=== PATIENT | female | born 1955 | race African-American/Black ===

== ENCOUNTER 2016-08-30 22:04 | Inpatient (IN) | payer OTHER, BC ==
--- NOTE | ~2016-08-30 | US98 ---
[facility] A Service of [facility] & [facility] RADIOLOGY TEXT RESULTS PATIENT: KOFI REYES LOCATION: [facility] 564-01 : 54 UNIT #: [id number] AGE: [address]: Janae Driver MD SEX: F ORDER DR: [id number] [facility] [address] [facility]. [place], [place] [address] [id number] I MR#: [id number] Acc #: [id number] NAME: KOFI REYES : 1955 SEX: F STUDY DATE/TIME: 09/02/2016 22:45 UNIT: [facility] ROOM: [facility] STUDY DESCRIPTION: US Pelvic Non-OB Complete Attending Physician: Janae Driver M.D. Ordering Physician: Janae Driver M.D. Primary Care Physician: Elisha Walden M.D. MEDICAL IMAGING REPORT This report is preliminary unless electronic signature is present EXAM Pelvic ultrasound, transabdominal technique only, 09/02/2016 INDICATION 60-year-old female with postmenopausal bleeding for 3 days. No prior surgeries. TECHNIQUE Sonographic imaging of the pelvis was performed transabdominally only. Transvaginal images could not be performed secondary to patient functional status. These were the best images possible. FINDINGS TRANSABDOMINAL IMAGING: These were the best images possible given the patient's functional status. Uterus measures about 7.3 cm x 2.7 cm x 3.4 cm. The endometrial stripe is difficult to visualize and assess. However, it appears thickened greater than a centimeter and perhaps measuring up to as much as 1.3 cm. There are mixed areas of increased and decreased echogenicity associated with the endometrial stripe and there may be a small amount of fluid within the endometrial cavity as well. Given the patient's age and the provided history, imaging features are concerning for at least endometrial hyperplasia and perhaps endometrial malignancy. When the patient can better cooperate, transvaginal imaging would be complimentary for further assessment but SUPPLY TECHNICIAN referral and tissue sampling will likely ultimately be necessary for further characterization and assessment regardless. Neither ovary could be identified. No adnexal mass, free fluid or drainable fluid collection. IMPRESSION 1. Abnormal examination. Although the study is limited due to the [facility]. [facility] A Service of [facility] RADIOLOGY TEXT RESULTS PATIENT: KOFI REYES LOCATION: [facility] 564-01 : 54 UNIT #: [id number] AGE: [address]: Janae Driver MD SEX: F ORDER DR: patient's functional status and a limited sonographic window the endometrial stripe appears to be abnormally thickened and there may be a small amount of fluid present in the endometrial cavity as well. It measures up to at least 1.1cm and perhaps up to 1.3 cm. SUPPLY TECHNICIAN referral recommended. Tissue sampling will likely be necessary for further assessment regardless of whether or not the patient can ultimately tolerate transvaginal imaging. 2. There is no free fluid or drainable fluid collection. Neither ovary was identified. Dictated by... Sudhakar Cabrera M.D. THIS IS AN ELECTRONICALLY VERIFIED REPORT Sudhakar Cabrera M.D. at 09/03/2016 5:14 PM MC/bridgett TD: 09/03/2016 02:57 JOB #: [id number] MEDICAL IMAGING REPORT Page 1 of 1 COPY
--- NOTE | ~2016-08-30 | MR17 ---
[facility] A Service of [facility] & [facility] RADIOLOGY TEXT RESULTS PATIENT: KOFI REYES LOCATION: [facility] 564-01 : 54 UNIT #: [id number] AGE: [address]: Janae Driver MD SEX: F ORDER DR: [id number] [facility] [address] [place], [place] [address] [id number] MR#: [id number] Acc #: [id number] NAME: KOFI REYES : 1955 SEX: F STUDY DATE/TIME: 08/31/2016 10:53 UNIT: [facility] ROOM: 4 STUDY DESCRIPTION: MR Brain WWo Contrast Attending Physician: Janae Driver M.D. Ordering Physician: Daniel Garcia M.D. Primary Care Physician: Elisha Walden M.D. MRI CENTER REPORT This report is preliminary unless electronic signature is present. REVISED REPORT SEE ADDENDUM EXAM MRI of the brain with and without contrast, 08/31/[address] head without contrast dated 08/30/2016. HISTORY Possible seizures. Patient was found on the floor with eyes rolled back in the head and foaming in the mouth, unresponsive. FINDINGS Multisequence multiplanar imaging of the brain was obtained with and without contrast. GFR measured greater than 60. 20 mL of MultiHance was administered intravenously. No acute stroke, hydrocephalus, hemorrhage or midline shift. There is increased T2 signal noted within the bilateral hippocampal formations, much worse on the left when compared to the right and it extends to involve most of the left uncus. There is enhancement of the left uncus and adjacent temporal lobe which appears to be faint and following the contour of the brain in this region. A few other scattered hyperintense small T2-signal lesions are noted in the subcortical white matter, periventricular white matter and edmundo. Thick slices through the sella with the pituitary gland, pineal region and upper cervical spine are unremarkable. There is an increased T2 FLAIR signal lesion measuring 1.2 cm x 1.3 cm in the superficial right parotid gland (series 10, image 1 and series 12, image 1). Lesion has mixed signal in the T2 and T1 FSE sequences with only mild peripheral enhancement if any. It is incompletely characterized on the current study. Paranasal sinuses, orbits with the ocular structures and mastoids do not demonstrate any significant abnormality. Mild S-shaped nasal septal deviation is seen. [facility] A Service of [facility] RADIOLOGY TEXT RESULTS PATIENT: KOFI REYES LOCATION: [facility] 564-01 : 54 UNIT #: [id number] AGE: [address]: Janae Driver MD SEX: F ORDER DR: IMPRESSION 1. There is a mildly enhancing increased T2 FLAIR signal lesion noted within the medial left temporal lobe predominately involving the uncus. It could be related to the occurrence of seizure or it could be related to a lesion like herpes encephalitis which induced seizure. Tumor and limbic encephalitis are next in the differential consideration. Correlate clinically and consider followup studies. No associated hemorrhage or significant herniation is seen. Mild swelling of the left uncus is visualized. 2. No acute stroke, hydrocephalus or midline shift. 3. Scattered hyperintense T2 nonenhancing nonspecific lesions are noted in the brain likely related to chronic microvascular ischemic change or migraine based on age and statistics. 4. A 1.2 cm x 1.3 cm nodule is seen in the superficial right parotid gland which is incompletely characterized on the current study. It is not fully included and visualized portions demonstrate mild peripheral enhancement. It could represent a tumor and it has to be further imaged with CT neck with contrast. 5. Attempts are made to contact Dr. Daniel Garcia at 2:15 p.m. on 08/31/2016. Dictated by... Jm Markham M.D. EDDIE/bridgett TD: 09/01/2016 00:37 JOB #: [id number] ADDENDUM EXAM MRI brain with and without contrast dated 08/31/16 FINDINGS The findings were discussed with Sandra at 2:40 p.m. on 08/31/16. 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 Differential considerations include tumor and limbic encephalitis, given the history of known primary. STAT * RESULT [facility]. [facility] A Service of [facility] RADIOLOGY TEXT RESULTS PATIENT: KOFI REYES LOCATION: [facility] 564-01 : 54 UNIT #: [id number] AGE: [address]: Janae Driver MD SEX: F ORDER DR: Dictated by... Jm Markham M.D. THIS IS AN ELECTRONICALLY VERIFIED REPORT Jm Markham M.D. at 09/05/2016 5:17 PM CPR/ea TD: 08/31/2016 15:17 JOB #: [id number] CC: Susan/melody Please Delete MRI CENTER REPORT Page 1 of 1 COPY
--- NOTE | ~2016-08-30 | BMI ---
[facility] Nutrition Therapy DATE: 09/01/16 Patient: KOFI REYES Physician: JAN Address: [address] [place] [address] DRIVE Room/Bed: [address] [place] [address], Zip: [place] [address] Admit Date: 08/31/16 Date of : 53 Height: 5 4 Weight: 236 107.5 HIGH BMI NOTE: DX: 60 Y.O. FEMALE ADMITTED FOR SEIZURE ANTHROPOMETRICS: 5'4", WT: 236# (107 KG), BMI: 40.5 DIET: NPO INTERVENTION: 1. NPO RECOMMENDATIONS: 1. ONCE MEDICALLY FEASIBLE, ADVANCE DIET INDICATED TO CC+HH TO PROMOTE GRADUAL WEIGHT LOSS TOWARDS HEALTHY BMI (19.0-25.0) OR +/-10%IBW RD WILL F/U PER PROTOCOL Respectfully, ROB GIL MS, RD, LD Food and Nutritional Services [facility] cc: client file
--- NOTE | ~2016-08-30 | CR72 ---
[facility] A Service of [facility] RADIOLOGY TEXT RESULTS PATIENT: KOFI REYES LOCATION: [facility] : 54 UNIT #: [id number] AGE: [address]: Daniel Garcia MD SEX: F ORDER DR: [id number] [facility] [address] [facility] [facility]. [place], [place] [address] [id number] I MR#: [id number] Acc #: [id number] NAME: KOFI REYES : 1955 SEX: F STUDY DATE/TIME: 08/30/2016 21:51 UNIT: [facility] ROOM: 10066 STUDY DESCRIPTION: CR Chest Single View Portable Attending Physician: Daniel Garcia M.D. Ordering Physician: Vaibhav Swanson M.D. Primary Care Physician: Elisha Walden M.D. MEDICAL IMAGING REPORT This report is preliminary unless electronic signature is present EXAM Portable chest 08/30 HISTORY Found on floor by brother erasmo with suspected apparent seizure and weakness and shortness of air COMPARISON None FINDINGS Portable view of the chest was obtained. There are low lung volumes with mild perihilar and bibasilar atelectasis. The heart size is upper limits of normal. IMPRESSION Very poor inspiration with perhaps mild bibasilar and perihilar atelectasis. Otherwise, no active disease. Dictated by... Chris Tinoco M.D. THIS IS AN ELECTRONICALLY VERIFIED REPORT Chris Tinoco M.D. at 08/31/2016 9:55 PM FEL/to TD: 08/31/2016 16:17 JOB #: [id number] MEDICAL IMAGING REPORT [facility] A Service of [facility] RADIOLOGY TEXT RESULTS PATIENT: KOFI REYES LOCATION: [facility] : 54 UNIT #: [id number] AGE: [address]: Daniel Garcia MD SEX: F ORDER DR: Page 1 of 1 COPY
--- NOTE | ~2016-08-30 | DS ---
Unit #: [id number] #: [id number] Patient: KOFI REYES [id number] [address] [id number] I MR#: [id number] NAME: KOFI REYES ROOM: [facility] Age: 60 Sex: F Admission Date: 08/31/2016 : 1955 Discharge Date: 09/03/2016 Attending Physician: Janae Driver M.D. Primary Care Physician: Elisha Walden M.D. DISCHARGE SUMMARY PRINCIPAL DIAGNOSES 1. New onset seizure. 2. Postmenopausal bleeding with thickened endometrial stripe noted on pelvic ultrasound. 3. Iron deficiency anemia. 4. Hypothyroidism. 5. Paroxysmal atrial fibrillation, currently in normal sinus rhythm. 6. Hypertension. 7. Depression with noted flat affect. 8. Mild bradycardia, off of beta-blockers. 9. Obesity, morbid. 10. Hypothyroidism. 11. Hyperlipidemia CONSULTANTS Dr. Jean Baptiste, Neurology. PROCEDURES IMAGIN. Chest x-ray, August 30, 2016, with perihilar atelectasis. 2. CT of the head without contrast, August 30, 2016, with increased density in the inferior portion of the left cerebral hemisphere. 3. CT of the cervical spine without contrast on August 30, 2016, with degenerative changes. No acute injury. No fracture. 4. MRI of the brain with and without contrast, August 31, 2016, revealing increased signal uptake in the left limbic region. 5. Lumbar puncture, studies of which were ultimately negative for infection or malignancy. 6. Transvaginal ultrasound on September 02, 2016, with thickened endometrial stripe measuring 1.1 to 1.3 cm. No free fluid noted. No ovaries were not imaged. CLINICAL HISTORY AND HOSPITAL COURSE Mrs. Reyes is a 60-year-old -[place] female who presents to the emergency department after a witnessed seizure at home. Please refer to the H and P for further details. CT scan of the head without contrast, did reveal some questionable change in the left cerebral hemisphere. The patient was subsequently admitted. The patient started empiric Vimpat per the direction of Dr. Jean Bapitste. Due to abnormal CT, she underwent MRI of the brain, revealing some increased signal uptake in the left limbic region. Appearance is most consistent with perhaps some sort of encephalitis. For this reason, the patient underwent lumbar puncture but infectious workup was completely negative. Unit #: [id number] #: [id number] Patient: KOFI REYES The patient had no further seizures on medication. It is felt that most likely this MRI abnormality was a seizure focus. It may be related to seizure, in of itself. The patient will be maintained on Vimpat. She will need a follow-up MRI in 3-4 weeks. The patient has a history of postmenopausal bleeding, and upon review of records from the [place], there are plans to have transvaginal ultrasound. This was completed during hospitalization, and did indeed reveal endometrial stripe which will require endometrial biopsy. We will send these results back to her primary care provider at the [place], and again can see OB-POLITICAL REPORTER at the [place] for evaluation. Patient demonstrated difficulty with short-term memory during hospitalization. Her family denies that she has any of this at home, and I cannot find any other medical cause for it given seizure many days ago. Thyroid function and vitamin B12 levels were acceptable. Her affect is also quite flat, and I am concerned that perhaps her memory loss is something secondary to perhaps some depression, though she denies depression, her family states she is not depressed at home. Patient also may have some underlying memory loss. I think that this can be worked up again as an outpatient. Patient's other chronic condition remains stable. I will note that she has been bradycardiac even off of her metoprolol during hospitalization. I am going to hold it as an outpatient, and it can be reevaluated as an outpatient. DISCHARGE CONDITION Stable. DISCHARGE STATUS Discharged to home. DISCHARGE MEDICATIONS 1. Flovent Diskus 2 sprays per nostril daily. 2. Xarelto 20 mg daily. 3. Neurontin 100 mgs b.i.d. 4. Vimpat 100 mg p.o. b.i.d. with 1 refill. 5. Losartan 50 mg daily. 6. Ferrous sulfate 325 mg t.i.d. 7. Levothyroxine 175 mcg p.o. daily. DISCHARGE INSTRUCTIONS Patient was instructed to follow a heart-healthy diet. She can increase her activity as tolerated. FOLLOWUP The patient will follow up with her primary care provider, Dr. Walden in approximately 1-2 weeks, needs again to be seen by OB-POLITICAL REPORTER through the [place] for endometrial biopsy. She also needs repeat MRI of the brain in 3-4 weeks to further evaluate this abnormality in the left limbic system to determine whether if perhaps it progresses and/or resolves. [facility]. TIME SPENT ON DISCHARGE: 34 minutes. Unit #: [id number] #: [id number] Patient: KOFI REYES Dictated by... Pavel Cobb/edmond TD: 09/03/2016 20:56 JOB #: [id number] DISCHARGE SUMMARY Page 1 of 1 X Janae Driver MD X DISCHARGE SUMMARY
--- NOTE | ~2016-08-30 | CT71 ---
[facility] A Service of [facility] & [facility] RADIOLOGY TEXT RESULTS PATIENT: KOFI REYES LOCATION: [facility] [address]127-86 : 54 UNIT #: [id number] AGE: [address]: Daniel Garcia MD SEX: F ORDER DR: [id number] [facility] [address] [facility]. [place], [place] [address] [id number] I MR#: [id number] Acc #: [id number] NAME: KOFI REYES : 1955 SEX: F STUDY DATE/TIME: 08/30/2016 23:03 UNIT: [facility] ROOM: 29581 STUDY DESCRIPTION: CT Head Wo Contrast Attending Physician: Daniel Garcia M.D. Ordering Physician: Vaibhav Swanson M.D. Primary Care Physician: Elisha Walden M.D. MEDICAL IMAGING REPORT This report is preliminary unless electronic signature is present EXAM CT scan of the head without contrast INDICATIONS Suspected seizure; patient was found on floor with eyes rolled back in head and foaming at the mouth. Patient is unresponsive. This happened this evening. FINDINGS This CT exam was performed with one or more of the following radiation dose reduction techniques: Automatic exposure control, adjustment of mA and/or kV according to patient size, and iterative reconstruction. Unenhanced images were obtained through the brain. There is a slightly hyperdense area noted in the medial temporal lobe. This is about 17 mm x 14 mm. Ventricles and subarachnoid spaces are normal. There is no extraaxial fluid collection. The bones are normal. IMPRESSION 1. There is a subtle area of increased density measuring about 17 mm in diameter in the inferior portion of the left cerebral hemisphere. I believe it is in the inferior medial left temporal lobe, but its location is difficult to clearly determine on this unenhanced CT scan alone. This certainly could represent a tumor. It does not appear to represent hemorrhage and there are no acute findings present. Followup with an MRI of the brain with and without contrast is recommended, perhaps either as an outpatient or as an inpatient in the morning. Dictated by... Chris Tinoco M.D. THIS IS AN ELECTRONICALLY VERIFIED REPORT [facility] A Service of [facility] & [facility] RADIOLOGY TEXT RESULTS PATIENT: KOFI REYES LOCATION: [facility] [address]145-20 : 54 UNIT #: [id number] AGE: [address]: Daniel Garcia MD SEX: F ORDER DR: Chris Tinoco M.D. at 08/31/2016 9:55 PM FEL/psc TD: 08/31/2016 17:46 JOB #: [id number] MEDICAL IMAGING REPORT Page 1 of 1 COPY
--- NOTE | ~2016-08-30 | MR17 ---
[facility] A Service of [facility] & [facility] RADIOLOGY TEXT RESULTS PATIENT: KOFI REYES LOCATION: [facility] [address]-77 : 54 UNIT #: [id number] AGE: [address]: Daniel Garcia MD SEX: F ORDER DR: [id number] [facility] [address] [place], [place] [address] [id number] I MR#: [id number] Acc #: NAME: KOFI REYES : 1955 SEX: F STUDY DATE/TIME: 08/31/2016 10:53 UNIT: [facility] ROOM: 08226 STUDY DESCRIPTION: MR Brain WWo Contrast Attending Physician: Daniel Garcia M.D. Ordering Physician: Daniel Garcia M.D. Primary Care Physician: Elisha Walden M.D. MRI CENTER REPORT This report is preliminary unless electronic signature is present. ADDENDUM EXAM MRI brain with and without contrast dated 08/31/16 FINDINGS The findings were discussed with Sandra at 2:40 p.m. on 08/31/16. Differential considerations include tumor and lymphocytic encephalitis. STAT * RESULT Dictated by... Jm Markham M.D. CPR/siobhan TD: 08/31/2016 15:17 JOB #: [id number] MRI CENTER REPORT Page 1 of 1
--- NOTE | ~2016-08-30 | DS ---
Unit #: [id number] #: [id number] Patient: KOFI REYES [id number] [address] [address] [id number] I MR#: [id number] NAME: KOFI REYES ROOM: 4 Age: 60 Sex: F Admission Date: 08/31/2016 : 1955 Discharge Date: 09/03/2016 Attending Physician: Janae Driver M.D. Primary Care Physician: Elisha Walden M.D. DISCHARGE SUMMARY ADDENDUM The cost of Vimpat was checked and unfortunately it was very expensive. She has been changed from Vimpat to Keppra 500 mg p.o. b.i.d. and a 2-month prescription given. Dictated by... Janae Driver M.D. KEH/gz TD: 09/04/2016 08:12 JOB #: [id number] DISCHARGE SUMMARY Page 1 of 1 X Janae Driver MD DISCHARGE SUMMARY
--- NOTE | ~2016-08-30 | EKG ---
PATIENT: KOFI REYES UNIT #: [id number] Ventricular Rate: 62 BPM Atrial Rate: 62 BPM P-R Interval: 160 ms QRS Duration: 84 ms Q-T Interval: 396 ms QTC Calculation(Bezet): 401 ms P [place]: 11 degrees Calculated R [place]: 14 degrees Calculated T [place]: 23 degrees Diagnosis Line: Normal sinus rhythm Diagnosis Line: Nonspecific T wave abnormality Diagnosis Line: Borderline ECG Diagnosis Line: When compared with ECG of 30-AUG-2016 21:54, Diagnosis Line: Vent. rate has decreased BY 32 BPM Diagnosis Line: QT has shortened Diagnosis Line: Confirmed by MIREILLE VERA MD ([id number]) on 09/02/2016 Diagnosis Line: 5:32:51 AM INTERPRETING MD: JODY WOODWARD
--- NOTE | ~2016-08-30 | EKG ---
PATIENT: KOFI REYES UNIT #: [id number] Ventricular Rate: 94 BPM Atrial Rate: 94 BPM P-R Interval: 158 ms QRS Duration: 82 ms Q-T Interval: 364 ms QTC Calculation(Bezet): 455 ms P [place]: 43 degrees Calculated R [place]: 14 degrees Calculated T [place]: 49 degrees Diagnosis Line: Normal sinus rhythm Diagnosis Line: Possible Left atrial enlargement Diagnosis Line: Borderline ECG Diagnosis Line: Diagnosis Line: Confirmed by GERARD PEREZ MD ([id number]) on Diagnosis Line: 08/31/2016 3:52:26 PM INTERPRETING MD: LOUISE
--- NOTE | ~2016-08-30 | HP ---
Unit #: [id number] #: [id number] Patient: KOFI REYES [id number] [address] [place], [place] [address] [id number] I MR#: [id number] NAME: KOFI REYES ROOM: 48412 Age: 60 Sex: F Admission Date: 08/31/2016 : 1955 Attending Physician: Daniel Garcia M.D. Primary Care Physician: Elisha Walden M.D. HISTORY AND PHYSICAL SOURCE OF INFORMATION The patient is a poor historian. History is from collateral sources, the ER information and sisters Georgina and Emy. CHIEF COMPLAINT Seizures. HISTORY OF PRESENT ILLNESS This is a 60-year-old female with a history of atrial fibrillation, anticoagulation with Xarelto, hypertension, morbid obesity, who was recently diagnosed with a spot on her ovaries and was scheduled for a biopsy in 48 hours on 09/02/2016, presents with seizure. She has never had a seizure in the past. The patient was found by family and brought to the ER for evaluation. Here in the ER, she was started on Keppra and Ativan. She is not exactly postictal at this time, however, the exact description of what they found on the seizure episode really is per report. The patient was evaluated by neurology, Dr. Jean Baptiste, and the CAT scan shows radiological density around the parietal region which is concerning, especially given the fact that she is on Xarelto. She is currently being evaluated by Neurology. PAST MEDICAL HISTORY As stated above significant for: 1. Hypertension. 2. Hypothyroidism. 3. Hyperlipidemia. 4. Depression. 5. Recent diagnosis of ovarian mass. 6. Atrial fibrillation. 7. Morbid obesity. PAST SURGICAL HISTORY Includes low back surgery in 2001. CURRENT MEDICATIONS Include: 1. Ferrous sulfate 325 mg p.o. t.i.d. 2. Fluticasone propionate 50 mcg two sprays each nostril daily. 3. Gabapentin 100 mg p.o. b.i.d. 4. Levothyroxine 175 mcg one tablet by mouth daily. 5. Losartan 50 mg one tablet p.o. daily. 6. Metoprolol tartrate 50 mg one tablet p.o. b.i.d. 7. Xarelto 20 mg daily. Unit #: [id number] #: [id number] Patient: KOFI REYES ALLERGIES 1. Lisinopril. 2. Codeine. SOCIAL HISTORY From previous documentation from [facility], lifelong nonsmoker. FAMILY HISTORY Not pertinent. REVIEW OF SYSTEMS Limited at this time. She denies any headache, nausea or vomiting. The patient is a poor historian at this point and she is minimally verbal though she responds to direct questioning. PHYSICAL EXAMINATION VITAL SIGNS: Blood pressure 129/60, pulse 91, respiratory rate 17, temperature 98.0, O2 saturation 97% on 2 liters oxygen. GENERAL: She was comfortable, not in distress. HEENT: Pupils seemed to be equal and react to light and accommodation. She had evidence of bleeding from her tongue. LUNGS: Reduced breath sounds along the bases posteriorly. HEART: First and second heart sounds only. ABDOMEN: Soft, nondistended, nontender. EXTREMITIES: No edema with some bruising on her left owusu. NEUROLOGIC: Not able to fully assess secondary to patient's drowsiness. LYMPHATICS: No enlarged peripheral lymphadenopathy that I could appreciate. PSYCHIATRIC: Not able to fully assess. DIAGNOSTIC STUDIES LABORATORY: Chemistries with glucose 118, BUN 14, creatinine 1.1, sodium 140, potassium 4.2, chloride 107, calcium 9.1. TSH 0.04. CBC with WBC 9.7, hemoglobin 12.3, hematocrit 39.4, platelet count 228, neutrophil count 91.4. She had urinalysis which showed protein 1+, urobilinogen 0.2, otherwise essentially normal. Urine toxicology screen was essentially negative. CARDIOVASCULAR: EKG was normal sinus rhythm. ASSESSMENT AND PLAN 1. Seizures, new onset. Neurology has been consulted at this time. Workup is in progress. 2. Atrial fibrillation. Patient was on Xarelto 20 mg p.o. daily for anticoagulation. 3. Hypertension. 4. Morbid obesity. 5. Chronic back pain. 6. Hypothyroidism. 7. Vaginal bleeding with ovarian mass. 8. GI prophylaxis put her Protonix 40 mg p.o. daily. 9. Seizures. Management will be per Neurology; however, she was on Keppra and Dr. Jean Baptiste has added Vimpat. CODE STATUS She is a FULL CODE. Unit #: [id number] #: [id number] Patient: KOFI REYES Dictated by Pavel Yang TD: 08/31/2016 15:01 JOB #: [id number] HISTORY AND PHYSICAL Page 1 of 1 X Mo Charles MD X HISTORY AND PHYSICAL
--- NOTE | ~2016-08-30 | CT52 ---
[facility] A Service of [facility] RADIOLOGY TEXT RESULTS PATIENT: KOFI REYES LOCATION: CEDOF : 54 UNIT #: [id number] AGE: [address]: Daniel Garcia MD SEX: F ORDER DR: [id number] [facility] [address]. [place], [place] [address] [id number] I MR#: [id number] Acc #: [id number] NAME: KOFI REYES : 1955 SEX: F STUDY DATE/TIME: 08/30/2016 23:19 UNIT: CEDOF ROOM: 22821 STUDY DESCRIPTION: CT Cervical Spine Wo Cont Attending Physician: Daniel Garcia M.D. Ordering Physician: Vaibhav Swanson M.D. Primary Care Physician: Elisha Walden M.D. MEDICAL IMAGING REPORT This report is preliminary unless electronic signature is present EXAM Cervical spine CT scan without contrast HISTORY Suspected seizure. Patient found on floor and is unresponsive and may have neck injury. TECHNIQUE Axial 2 mm images were obtained through the cervical spine and sagittal and coronal reconstructions were generated. This CT exam was performed with one or more of the following radiation dose reduction techniques: automatic exposure control, adjustment of mA and/or kV according to patient size, and iterative reconstruction. FINDINGS There are prominent anterior osteophytes formations from C3-4 through C7-T1 with partial fusion of C2-3. There is no fracture or subluxation. IMPRESSION Degenerative changes. No evidence of acute injury. Dictated by... Chris Tinoco M.D. THIS IS AN ELECTRONICALLY VERIFIED REPORT Chris Tinoco M.D. at 08/31/2016 9:55 PM FEL/to TD: 08/31/2016 17:46 JOB #: [id number] [facility] A Service of [facility] RADIOLOGY TEXT RESULTS PATIENT: KOFI REYES LOCATION: CEDOF : 54 UNIT #: [id number] AGE: [address]: Daniel Garcia MD SEX: F ORDER DR: MEDICAL IMAGING REPORT Page 1 of 1 COPY
--- NOTE | ~2016-08-30 | CO ---
Unit #: [id number] #: [id number] Patient: KOFI REYES [id number] [facility] [address]. [place], [place] [address] [id number] I MR#: [id number] NAME: KOFI REYES ROOM: 564 Age: 60 Sex: F Admission Date: 08/31/2016 : 1955 Attending Physician: Daniel Garcia M.D. Primary Care Physician: Elisha Walden M.D. Consultation Date: 08/31/2016 CONSULTATION REPORT PRIMARY CARE PHYSICIAN [facility]. REASON FOR CONSULTATION Multiple seizure. PATIENT IDENTIFICATION This is a 60-year-old apparently right-handed female, who is evaluated in room 10 in the ER at [facility]. SOCIAL INFORMATION The medical records and my discussion with the patient's sisters. PROBLEM LIST 1. Hypertension. 2. Thyroid disease. 3. Diabetes. 4. Anxiety and possible depression. 5. Some sort of ovarian tumor which is being investigated. 6. Low back surgery. 7. GERD. 8. Posttraumatic stress disorder. 9. Undifferentiated somatoform disorder. 10. Obesity. 11. Paroxysmal atrial fibrillation. 12. Arthritis. HISTORY OF PRESENT ILLNESS This is a 60-year-old female, who actually lives I believe with her sister and she has been sick lately because of multiple issues and lately some problems for which the differential diagnosis, some sort of ovarian tumor, and she was at home and this was regular day for her till her brother found her which could be described as active seizure type event, so she was brought in via EMS yesterday around 11:14 p.m. She had another seizure while she was here, she was given Ativan and loaded with Keppra and she is now lethargic. She had CT of the head done, which showed an area of more hyperdensity in the basal ganglia/a bit rostral. No seizures. No falls or injuries otherwise known to me. No drugs. No change in medication. No headaches or other issues. She is a bit drowsy as I had mentioned. Unit #: [id number] #: [id number] Patient: KOFI REYES Nothing suggesting DIRECTOR TALENT infection. Vital signs were stable. She is afebrile. Her MRI is pending. She is already on Xarelto I believe. PAST MEDICAL HISTORY As discussed above. PAST SURGICAL HISTORY As discussed above. ALLERGIES None. HOME MEDICATIONS Ferrous sulfate, Flovent, Neurontin, Synthroid, Losartan, metoprolol, Xarelto. FAMILY HISTORY No seizures. SOCIAL HISTORY It looks like she lives with her brother. There is no tobacco, alcohol, or drug use. REVIEW OF SYSTEMS Could not be obtained. She is quite lethargic right now. PHYSICAL EXAMINATION VITAL SIGNS: Temperature is 98 degrees Fahrenheit, pulse 68, respirations 19, blood pressure 133/63. Weight of 250 pounds. NEUROLOGIC: The patient is lethargic, but she answers my commands. She can name. She can repeat. She thinks this is June. She know she is in the hospital. No right/left confusion. Finger agnosia is very questionable. Cranial examination, she does respond to threats in the primary naqvi. Eye movements are conjugate. I did not see any ptosis. I did not see any nystagmus. Extraocular movements seemed to be intact. Pupils are reactive, size about 3 mm. No ptosis. No nystagmus. Sensation on the face and scalp are normal. Strength of muscles of facial expression normal. Hearing seemed to be intact. Tongue was midline. I could not visualize the oropharynx or uvula. Head turning was spontaneous. Motor examination, she is moving all extremities. Strength of at least 4+ or /5. Sensory examination intact for soft touch and pain. Extinction is questionable. Romberg was not evaluated. Gait examination was deferred. I could not get any reflexes. Toes are equivocal. DIAGNOSTIC STUDIES LABORATORY RESULTS: Reviewed. IMAGING STUDIES: Reviewed. Unit #: [id number] #: [id number] Patient: KOFI REYES IMPRESSION Multiple seizures, very nonspecific. Further workup has been requested. PLAN I will put her on Vimpat instead of Keppra because of her history of depression and follow up on the MRI, get an EEG and we will go from there. Seizure precautions and state laws apply. If there is any other questions, issues, or concerns, please let me know and I will follow her. Dictated by... Nava Jean Baptiste M.D. OBEY/sterling TD: 09/01/2016 03:08 JOB #: [id number] CONSULTATION REPORT Page 1 of 1 X Nava Jean Baptiste MD CONSULTATION REPORT
--- NOTE | ~2016-08-30 | XA198 ---
[facility] A Service of [facility] RADIOLOGY TEXT RESULTS PATIENT: KOFI REYES LOCATION: [facility] 564-01 : 54 UNIT #: [id number] AGE: [address]: Janae Driver MD SEX: F ORDER DR: [id number] [facility] [address]. [place], [place] [address] [id number] I MR#: [id number] Acc #: [id number] NAME: KOFI REYES : 1955 SEX: F STUDY DATE/TIME: 09/02/2016 8:15 UNIT: [facility] ROOM: [facility] STUDY DESCRIPTION: XA Spinal Puncture Attending Physician: Janae Driver M.D. Ordering Physician: Daniel Garcia M.D. Primary Care Physician: Elisha Walden M.D. MEDICAL IMAGING REPORT This report is preliminary unless electronic signature is present EXAM Lumbar puncture under fluoroscopy. HISTORY Recent onset seizures and confusion. PROCEDURE Procedure, attendant risks, and options were explained and consent obtained at the floor. The patient was placed in the prone position in the angio suite and the skin over the lower back was prepped with chlorhexidine and draped. Utilizing maximal sterile barrier technique including mask, gloves, and cap, a puncture was performed of the lumbar subarachnoid space under local anesthesia at L4-5. A total of 17 mL of clear CSF was recovered. A spot radiograph was obtained documenting placement. Needle was removed, hemostasis achieved, and the patient returned to the floor. A single spot radiograph was obtained. Total fluoroscopy time was 0.8 minutes. Total exposure 114 mGy air kerma standard. CONCLUSION Technically successful LP under fluoroscopy. Dictated by... Kapil Borwn M.D. THIS IS AN ELECTRONICALLY VERIFIED REPORT Kapil Brown M.D. at 09/02/2016 5:03 PM GREGORY/chad TD: 09/02/2016 15:05 JOB #: [id number] [facility] A Service of [facility] RADIOLOGY TEXT RESULTS PATIENT: KOFI REYES LOCATION: [facility] 564-01 : 54 UNIT #: [id number] AGE: [address]: Janae Driver MD SEX: F ORDER DR: MEDICAL IMAGING REPORT Page 1 of 1 COPY
[~2016-08-30 22:04] MED LIST: HCTZ PO; IRON PO; METFORMIN PO; WELLBUTRIN PO
[2016-08-30 22:29] LABS: URINE APPEARANCE CLEAR; URINE BILIRUBIN NEG (NEG); URINE BLOOD NEG (NEG); URINE COLOR YELLOW; URINE GLUCOSE NEG (NEG); URINE KETONE NEG (NEG); URINE LEUKOCYTE ESTERASE NEG (NEG); URINE NITRATE NEG (NEG); URINE PROTEIN 1+ (NEG); URINE SPECIFIC GRAVITY 1.011 (1.003-1.035); URINE UROBILINOGEN 0.2 MG/DL (NEG)
[2016-08-30 22:33] LABS: URINE BACTERIA AUWI NEG (NEGATIVE); URINE SQUAMOUS EPITHELIAL CELL OCC /[HPF]; UWBCS1 AUWI 0-2 (0-5)
[2016-08-30 22:46] LABS: CULTURE INDICATED? NO; URINE SOURCE CATH
[2016-08-30 22:57] LABS: AMPHETAMINE NEG (NEG); BARBITURATES NEG (NEG); BENZODIAZEPINES NEG (NEG); COCAINE NEG (NEG); MARIJUANA NEG (NEG); OPIATES NEG (NEG); TRICYCLIC ANTIDEPRESSANTS NEG (NEG); U METHADONE NEG (NEG)
[2016-08-30 23:19] LABS: BASOPHIL% 0.3 % (0-2.5); EOSINOPHIL# 0.1 X10e3 (0-0.7); EOSINOPHIL% 0.7 % (0.0-7.0); HEMATOCRIT 39.4 % (35.0-45.0); HEMOGLOBIN 12.3 gm/dL (12.0-16.0); LYMPHOCYTE# 0.4 X10e3 (1.0-3.5); LYMPHOCYTE% 4.3 % (17.0-45.0); MEAN CELL VOLUME 76.5 FL (83-96); MEAN CORPUSCULAR HEMOGLOBIN 23.8 PG (28-34); MEAN CORPUSCULAR HGB CONC 31.1 g/dL (30-36); MONOCYTE# 0.3 X10e3 (0-1.0); MONOCYTE% 3.3 % (3.0-12.0); NEUTROPHIL# 8.8 X10e3 (1.5-7.1); NEUTROPHIL% 91.4 % (40-75); PLATELET COUNT 228 X10e3 (140-420); RED BLOOD COUNT 5.15 X10e (3.90-5.30); RED CELL DISTRIBUTION WIDTH 15.7 % (11.0-15.5); WHITE BLOOD COUNT 9.7 X10e3 (4.0-10.5)
[2016-08-30 23:20] LABS: DIFF IND NO
[2016-08-30 23:34] LABS: PARTIAL THROMBOPLASTIN TIME 22.5 SECONDS (23.5-31.3); PROTHROMBIN TIME (PATIENT) 10.7 SECONDS (9.6-11.5)
[2016-08-30 23:43] LABS: ALBUMIN SERUM 3.7 g/dL (3.5-5.0); BILIRUBIN, DIRECT 0.1 mg/dL (0.0-0.2); BILIRUBIN,INDIRECT 0.4 mg/dL (0.0-0.9); BILIRUBIN,TOTAL 0.5 mg/dL (0.2-2.0); BUN/CREATININE RATIO 12.72; CALCIUM SERUM 9.1 mg/dL (8.4-10.2); CREATININE SERUM 1.1 mg/dL (0.6-1.4); GLOM FILT RATE Estimated 62.8 mL/min (>60); POTASSIUM 4.2 mmol/L (3.5-5.1); PROTEIN TOTAL SERUM 7.4 g/dL (6.0-8.3)
[2016-08-31] MEDS ORDERED: FERRO-TIME325 MG PO (05:24)
[2016-08-31] MEDS ORDERED: FLOVENT DISKUS50 MCG (05:24)
[2016-08-31] MEDS ORDERED: NEURONTIN100 MG PO (05:25)
[2016-08-31] MEDS ORDERED: LOSARTAN POTASS50 MG PO (05:26)
[2016-08-31] MEDS ORDERED: SYNTHROID125 PO (05:26)
[2016-08-31] MEDS ORDERED: METOPROLOL SUCC50 MG PO (05:27)
[2016-08-31] MEDS ORDERED: XARELTO20 MG PO (05:27)
[2016-09-01 10:58] LABS: HEMATOCRIT 36.4 % (35.0-45.0); HEMOGLOBIN 11.3 gm/dL (12.0-16.0); MEAN CELL VOLUME 76.5 FL (83-96); MEAN CORPUSCULAR HEMOGLOBIN 23.8 PG (28-34); MEAN CORPUSCULAR HGB CONC 31.1 g/dL (30-36); MEAN PLATELET VOLUME 7.6 FL (6.5-11.5); RED BLOOD COUNT 4.76 X10e (3.90-5.30); RED CELL DISTRIBUTION WIDTH 15.8 % (11.0-15.5); WHITE BLOOD COUNT 7.7 X10e3 (4.0-10.5)
[2016-09-01 11:09] LABS: INR 1.1; PROTHROMBIN TIME (PATIENT) 11.1 SECONDS (9.6-11.5)
[2016-09-01 11:54] LABS: FOLATE (FOLIC ACID) 9.6 ng/mL (>5.8)
[2016-09-01 15:05] LABS: FREE T3 2.2 pg/mL (2.5-3.9)
[2016-09-01 15:07] LABS: FREE THYROXIN (T4) 0.91 ng/dL (0.58-1.64)
[2016-09-02 05:25] LABS: HEMATOCRIT 34.9 % (35.0-45.0); MEAN CELL VOLUME 75.5 FL (83-96); MEAN CORPUSCULAR HEMOGLOBIN 23.7 PG (28-34); MEAN CORPUSCULAR HGB CONC 31.4 g/dL (30-36); MEAN PLATELET VOLUME 7.7 FL (6.5-11.5); RED BLOOD COUNT 4.63 X10e (3.90-5.30); RED CELL DISTRIBUTION WIDTH 15.7 % (11.0-15.5); WHITE BLOOD COUNT 6.5 X10e3 (4.0-10.5)
[2016-09-02 05:29] LABS: INR 1.1; PARTIAL THROMBOPLASTIN TIME 23.6 SECONDS (23.5-31.3); PROTHROMBIN TIME (PATIENT) 11.2 SECONDS (9.6-11.5)
[2016-09-02 07:10] LABS: BUN/CREATININE RATIO 6.25; CALCIUM SERUM 8.8 mg/dL (8.4-10.2); CREATININE SERUM 0.8 mg/dL (0.6-1.4); GLOM FILT RATE Estimated 92.3 mL/min (>60); POTASSIUM 3.8 mmol/L (3.5-5.1)
[2016-09-02 10:29] LABS: CRYPTO AG CSF/SERUM NEG (NEG); CRYPTO AG SOURCE CSF
[2016-09-02 10:44] LABS: GLUCOSE-CSF 69 mg/dL (50-80); PROTEIN-CSF 39 mg/dL (15-45)
[2016-09-02 10:54] LABS: CSF APPEARANCE CLEAR (CLEAR); CSF RBC 225 CMM (0); CSF TUBE NUMBER 1; CSF WBC 0 CMM (0-8); CSF XANTHACHROMIC NO
[2016-09-02 11:00] LABS: CSF APPEARANCE CLEAR (CLEAR); CSF RBC 10 CMM (0); CSF TUBE NUMBER 3; CSF WBC 0 CMM (0-8); CSF XANTHACHROMIC NO
[2016-09-03] MEDS ORDERED: KEPPRA500 M2 PO (12:58)
[2016-09-03] MEDS ORDERED: XYLOCAINE EXT (12:59)
[2016-09-03 13:44] LABS: HSV 1 DNA Not Detected (Not Detected); HSV 2 DNA Not Detected (Not Detected)
== END 2016-09-03 17:40 | disposition home or self-care (01) | DRG 101 ==
LOC: CED 22:04 → CEDOF 08-31 00:40 → C5C 08-31 23:05
PROVIDERS: Emergency Medicine; Family Medicine; Internal Medicine; Psychiatry & Neurology Neurology; Radiology Diagnostic Radiology
PROC: 009U3ZX Drainage of Spinal Canal, Percutaneous Approach, Diagnostic (ICD-10-PCS; principal; 2016-09-02)
PROC: B01BYZZ Fluoroscopy of Spinal Cord using Other Contrast (ICD-10-PCS; 2016-09-02)
DX: G40.909 Epilepsy, unspecified, not intractable, without status epilepticus (principal); E66.01 Morbid (severe) obesity due to excess calories; I10 Essential (primary) hypertension; N93.9 Abnormal uterine and vaginal bleeding, unspecified; D50.9 Iron deficiency anemia, unspecified; E03.9 Hypothyroidism, unspecified; I48.0 Paroxysmal atrial fibrillation; R00.1 Bradycardia, unspecified; E78.5 Hyperlipidemia, unspecified; F43.10 Post-traumatic stress disorder, unspecified; F45.9 Somatoform disorder, unspecified; Z79.01 Long term (current) use of anticoagulants; N83.9 Noninflammatory disorder of ovary, fallopian tube and broad ligament, unspecified
CPT/HCPCS: 36415; 51701; 70450; 70553; 71010; 72125; 76856; 77003; 80048; 80076; 80307; 81003; 82607; 82746; 82945; 82947; 83540; 83550; 84157; 84439; 84443; 84481; 85025; 85027; 85610; 85730; 87070; 87205; 87529; 87899; 88108; 89051; 93005; 94760; 97161; 97166; 99285; A9577; C1713; C9113; C9254; G0480; J1953; J2060; J2270; J2405